=== PATIENT | female | born 1975 | race Caucasian/White ===

== ENCOUNTER → 2016-08-25 | Outpatient (CLI) | payer OTHER ==
--- NOTE | 2016-08-25 09:47 | USB ---
Reason for exam: clinical finding. Indicated problem(s): palpable abnormality in the left breast. Physical Findings: Nurse did not find any significant physical abnormalities on exam. US Breast BILAT Right breast ultrasound including all four quadrants, the retroareolar region and axilla demonstrates no cystic or solid lesion seen. Left breast ultrasound including all four quadrants, the retroareolar region and axilla demonstrates duct ectasia and a 1.7 x 0.41 x 0.70cm questionable lipoma at lateral ribs. These results were verbally communicated with the patient and result sheet given to the patient on 08/25/16. ASSESSMENT: Negative, BI-RAD 1 RECOMMENDATION: Routine screening mammogram of both breasts in 1 year. Manage patient on a clinical basis.
--- NOTE | 2016-09-01 15:28 | US ---
EXAMINATION TYPE: US mass soft tissue chest/back DATE OF EXAM: 08/25/2016 9:09 AM COMPARISON: NONE CLINICAL HISTORY: PALPABLE MASS N63. Ultrasound performed at the site of patient's palpable abnormality TECHNOLOGIST IMPRESSION: small probable lipoma left lateral rib area 1.7 x 0.4 x 0.7 cm non vascular Isoechoic focus present near the subcutaneous fat level. Grayscale, color Doppler imaging performed. IMPRESSION: Findings likely represent lipoma. CT or MRI with overlying marker could be performed for additional evaluation as indicated, follow-up clinically.
== END | disposition home or self-care (01) ==
LOC: RADUSWWP 08:28
PROVIDERS: ATTEND Family Medicine
DX: N63 Unspecified lump in breast (principal)

== ENCOUNTER 2016-11-01 16:14 | Emergency (ER) | payer OTHER ==
[2016-11-01] MEDS ORDERED: RX INFO: IV CONTRAST WAS GIVEN 1 EACH MISC MISCELLANE PRN (16:21)
[2016-11-01] MEDS ORDERED: fentaNYL (PF) 50 MCG/ML 2 ML AMP IV STA ×2 (16:22→17:20)
[2016-11-01 16:30] LABS: Basophils # (A) 0.1 k/uL (0-0.2); Basophils % (A) 1 %; CH 28.6; CHCM 31.8; Eosinophils # (A) 0.1 k/uL (0-0.7); Eosinophils % (A) 1 %; HCT 36.3 % (34.0-46.0); HDW 2.18; HGB 11.7 gm/dL (11.4-16.0); Luc # (Auto) 0.22; Luc % (Auto) 2; Lymphocytes # (A) 4.4 k/uL (1.0-4.8); Lymphocytes % (A) 35 %; MCH 29.1 pg (25.0-35.0); MCHC 32.3 g/dL (31.0-37.0); MCV 90.2 fL (80.0-100.0); Mean Platelet Volume 7.5; Monocytes # (A) 0.5 k/uL (0-1.0); Monocytes % (A) 4 %; Neutrophils # (A) 7.2 k/uL (1.3-7.7); Neutrophils % (A) 58 %; RBC 4.02 m/uL (3.80-5.40); RDW 12.8 % (11.5-15.5); WBC 12.6 k/uL (3.8-10.6); WBC (Perox) 12.59
[2016-11-01 16:43] LABS: ALT 280 U/L (9-52); AST 375 U/L (14-36); Alcohol <10 mg/dL; Alkaline Phosphatase 42 U/L (38-126); Amylase 79 U/L (30-110); Anion Gap 12 mmol/L; Blood Urea Nitrogen 14 mg/dL (7-17); Calcium 8.3 mg/dL (8.4-10.2); Carbon Dioxide 22 mmol/L (22-30); Chloride 105 mmol/L (98-107); Glucose 186 mg/dL (74-99); Non-African American GFR(MDRD) 55 (>60 ml/min/1.73 sqM); Potassium 3.7 mmol/L (3.5-5.1); Sodium 139 mmol/L (137-145); Total Bilirubin 0.5 mg/dL (0.2-1.3)
[2016-11-01] MEDS ORDERED: IPRATROPIUM-ALBUTEROL 3 ML NEB INHALATION STA (16:44)
[2016-11-01 16:47] LABS: INR 1.1 (<1.1); Partial Thromboplastin Time 23.4 sec (22.0-30.0); Prothrombin Time 11.1 sec (9.0-12.0)
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
[2016-11-01 16:51] LABS: Creatine Kinase 414 U/L (30-135)
[2016-11-01 16:58] LABS: Glucose,Whole Blood 179 mg/dL (75-99)
[2016-11-01 17:02] LABS: Creatine Kinase MB 2.1 ng/mL (0.0-2.4); Troponin I <0.012 ng/mL (0.000-0.034)
[2016-11-01] MEDS ORDERED: DIPH,PERTUS(ACELL)TETVAC-LF 0.5 ML VIAL IM ONE (17:07)
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
--- NOTE | 2016-11-01 17:15 | XR ---
EXAMINATION TYPE: XR pelvis AP view DATE OF EXAM: 11/01/2016 4:48 PM COMPARISON: NONE HISTORY: Pain TECHNIQUE: Single view. FINDINGS: There are bilateral inferior pubic rami fractures. There is widening of the right sacroiliac joint s pace. IMPRESSION: Pelvic fractures.
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
[2016-11-01 18:07] VITALS: PULSE 121; RESP 34; TEMP 97.7
[2016-11-01 18:10] VITALS: BP 91/53
== END 2016-11-01 18:08 | disposition other institution (70) ==
LOC: EC 16:14
DX: S06.0X1A Concussion with loss of consciousness of 30 minutes or less, initial encounter (principal); S32.592A Other specified fracture of left pubis, initial encounter for closed fracture; S32.591A Other specified fracture of right pubis, initial encounter for closed fracture; S32.059A Unspecified fracture of fifth lumbar vertebra, initial encounter for closed fracture; S01.81XA Laceration without foreign body of other part of head, initial encounter; S35.402A Unspecified injury of left renal artery, initial encounter; S32.019A Unspecified fracture of first lumbar vertebra, initial encounter for closed fracture; S32.029A Unspecified fracture of second lumbar vertebra, initial encounter for closed fracture; S32.039A Unspecified fracture of third lumbar vertebra, initial encounter for closed fracture; S32.049A Unspecified fracture of fourth lumbar vertebra, initial encounter for closed fracture; T14.90 Injury, unspecified; J98.01 Acute bronchospasm; F17.200 Nicotine dependence, unspecified, uncomplicated; V03.00XA Pedestrian on foot injured in collision with car, pick-up truck or van in nontraffic accident, initial encounter; Y92.29 Other specified public building as the place of occurrence of the external cause; Z23 Encounter for immunization
CPT/HCPCS: 99291; 96374; 36415; 94640; 86900; 86901; 80053; 82150; 82550; 82553; 83690; 84484; 85025; 85610; 85730; 86850; 86920; 80320; 71010; 72170; 73630; 72125; 70450; 71260; 74177; 90715; P9016; J3010; Q9967; 90471; 93005

== ENCOUNTER → 2017-04-01 | Outpatient (CLI) | payer OTHER ==
--- NOTE | 2017-04-01 15:56 | MR ---
EXAMINATION TYPE: MR lumbar spine wo con DATE OF EXAM: 04/01/2017 COMPARISON: NONE HISTORY: Pain TECHNIQUE: T1 and T2 axial and sagittal images of the lumbar spine are submitted. FINDINGS: There is no abnormal signal seen within the visualized spinal cord or paraspinal soft tissu es. At L1-2 there is no disc herniation, canal stenosis, degenerative disc disease. Or neural foramina. At L2-3 there is no disc herniation, canal stenosis, degenerative disc disease. Or neural foramina At L3-4 there is no disc herniation, canal stenosis, degenerative disc disease. Or neural foramina. M ild facet arthropathy. At L4-5 there is no disc herniation, canal stenosis, degenerative disc disease. Or neural foramina th ere is a nerve root sleeve diverticulum on the right. Mild central disc bulging. There is moderate fa cet arthropathy. At L5-S1 there is artifact at L5-S1 compatible with previous surgery. This distorts the spinal canal. No obvious canal stenosis or foraminal encroachment. IMPRESSION: 1. Mild central disc bulging L4-5. No Canal stenosis. 2. Multilevel facet arthropathy. 3. Postsurgical change L5-S1.
== END | disposition home or self-care (01) ==
LOC: RADMRIMAIN 14:43
PROVIDERS: ATTEND Family Medicine
DX: M51.26 Other intervertebral disc displacement, lumbar region (principal); M46.86 Other specified inflammatory spondylopathies, lumbar region; Z98.890 Other specified postprocedural states
CPT/HCPCS: 72148